=== PATIENT | female | born 1990 | race African-American/Black ===

== ENCOUNTER 2017-01-28 15:29 | Observation (INO) | payer MEDICAID ==
[~2017-01-28] VITALS: Ht 157.5 cm; Wt 87.5 kg
[2017-01-28 16:50] LABS: CLARITY URINE CLOUDY (CLEAR); COLOR URINE YELLOW (YELLOW); GLUCOSE URINE NEGATIVE (NEGATIVE); KETONES URINE NEGATIVE (NEGATIVE); LEUKOCYTE ESTERASE URINE 2+ (NEGATIVE); NITRITE URINE NEGATIVE (NEGATIVE); OCCULT BLOOD URINE NEGATIVE (NEGATIVE); PH URINE 8.5 (4.5-8.0); PROTEIN URINE NEGATIVE (NEGATIVE); SPECIFIC GRAVITY URINE 1.011 (1.005-1.030)
[2017-01-28] MEDS ORDERED: CEFAZOLIN 2,000 MG in DEXT 5% WATER 100 ML IV SCH (18:00)
[2017-01-28] MEDS: LACTATED RINGERS 1,000 ML IV SCH ×2 (18:25→22:42)
[2017-01-28] MEDS ORDERED: TERBUTALINE SULFATE 1MG/ML VIAL SUBCUT NR (20:15)
[2017-01-28] MEDS ORDERED: PREN-88 PO (21:38)
[2017-01-28] MEDS ORDERED: FOLI-43 PO (21:39)
== END 2017-01-28 22:00 | disposition home or self-care (01) ==
LOC: L&D 15:29
PROVIDERS: ADMIT Obstetrics & Gynecology; ATTEND Obstetrics & Gynecology
DX: O62.9 Abnormality of forces of labor, unspecified (principal); O26.893 Other specified pregnancy related conditions, third trimester; M54.9 Dorsalgia, unspecified; Z3A.29 29 weeks gestation of pregnancy
CPT/HCPCS: 76805; 76810; 76815; 76818; 81001; 96365; 96372; 99281; G0378; J0690; J3105; J7120; 59412; 96360; 96361; J7060

== ENCOUNTER 2017-02-06 22:20 | Observation (INO) | payer MEDICAID ==
[~2017-02-06 22:20] MED LIST: FOLI-43 PO; PREN-88 PO
[2017-02-07 01:01] LABS: CLARITY URINE CLEAR (CLEAR); COLOR URINE YELLOW (YELLOW); GLUCOSE URINE NEGATIVE (NEGATIVE); KETONES URINE NEGATIVE (NEGATIVE); LEUKOCYTE ESTERASE URINE TRACE (NEGATIVE); NITRITE URINE NEGATIVE (NEGATIVE); OCCULT BLOOD URINE TRACE (NEGATIVE); PH URINE 6.5 (4.5-8.0); PROTEIN URINE NEGATIVE (NEGATIVE); SPECIFIC GRAVITY URINE 1.014 (1.005-1.030)
[2017-02-07] MEDS ORDERED: LACTATED RINGERS 1,000 ML IV SCH (08:00)
== END 2017-02-07 06:35 | disposition home or self-care (01) ==
LOC: L&D 22:20 → INTOOBSV 22:20
PROVIDERS: ADMIT Obstetrics & Gynecology; ATTEND Obstetrics & Gynecology
DX: O62.9 Abnormality of forces of labor, unspecified (principal); Z3A.31 31 weeks gestation of pregnancy
CPT/HCPCS: 76805; 76810; 81001; 99281; G0378; J7120; 96360; 96361

== ENCOUNTER 2017-02-20 18:01 | Observation (INO) | payer MEDICAID ==
[~2017-02-20] VITALS: Ht 157.5 cm; Wt 87.5 kg
== END 2017-02-20 19:30 | disposition home or self-care (01) ==
LOC: L&D 18:01
PROVIDERS: ADMIT Obstetrics & Gynecology; ATTEND Obstetrics & Gynecology
DX: O26.893 Other specified pregnancy related conditions, third trimester (principal); R10.9 Unspecified abdominal pain; O30.003 Twin pregnancy, unspecified number of placenta and unspecified number of amniotic sacs, third trimester; Z3A.33 33 weeks gestation of pregnancy
CPT/HCPCS: 99281; G0378